=== PATIENT | male | born 1935 | race Caucasian/White ===

== ENCOUNTER 2017-11-05 06:22 | Day surgery (SDC) | payer MEDICARE ==
[2017-11-01 14:53] VITALS: BMI 25.7
[~2017-11-05 06:22] MED LIST: LACTATED RINGERS 1,000 ML IV SCH; LIDOCAINE 1% 20 ML VIAL (10MG/ML) FOR IV START INTRADERMA PRN
[2017-11-05 07:03] VITALS: TEMP 97.6
[2017-11-05 07:07] LABS: Glucose,Whole Blood 108 mg/dL (75-99)
[2017-11-05] MEDS ORDERED: LIDOCAINE 1% INJ 10MG/ML (20 ML MDV) ONE (07:59)
[2017-11-05] MEDS ORDERED: PROPOFOL 10 MG/ML 20 ML VIAL IV ONE (07:59)
[2017-11-05 09:00] LABS: Glucose,Whole Blood 109 mg/dL (75-99)
[2017-11-05 09:06] VITALS: BP 139/73; PULSE 59; RESP 18
--- NOTE | 2017-11-05 13:24 | P.PCN ---
Date of Procedure: 11/05/17 Procedure(s) Performed: Procedure: 1. Esophagogastroduodenoscopy and biopsy. 2. Colonoscopy and polypectomy. Preoperative diagnosis: Gastroesophageal reflux disease and Hemoccult-positive stools and history of polyps. Postoperative diagnosis: 1. Small sliding hiatal hernia with no obvious esophagitis or complicated reflux disease. 2. Mild gastritis and duodenitis. 3. Sigmoid diverticulosis with no evidence of acute diverticulitis or strictures. 4. Multiple polyps snared in the cecum, hepatic flexure and sigmoid. 5. Low-grade internal hemorrhoids not bleeding at the time of this exam. Preparation: HalfLytely prep. Sedation: Was provided by anesthesia. Brief clinical history: The patient is an 82-year-old male who is referred for this evaluation because of chronic reflux symptoms and finding of blood in his stools. The patient gave history of a prior exam years back and history of polyps. He also has been having some change in his bowels. No dysphagia, weight loss or other significant symptoms. Procedure: With the patient on his left lateral decubitus position and after informed consent and adequate sedation, I passed the Olympus-GIF 160 video upper endoscope through the cricopharyngeus down the esophagus. There was a small sliding hiatal hernia. GE junction was around 38 cm from the incisors and there was no obvious esophagitis or complicated reflux disease. The endoscope was then passed into the stomach which was insufflated with air and inspected in detail including the retroflex view in the cardia. There was minimal mottling and erythema in the antrum. Pyloric channel did not show any ulcers. Duodenal bulb showed some erythema and minimal friability but no ulcers or erosions. Post bulbar area and descending duodenum within normal limits. I obtained multiple biopsies from the duodenum, antrum and esophagus then the endoscope was withdrawn and I proceeded to perform the colonoscopy. Perianal area did not show any fissures or fistulas. There were no masses felt on digital rectal examination. The Olympus CFQ 160L video colonoscope was then inserted in the rectum in the usual fashion and advanced to the cecum. There were multiple diverticular orifices seen scattered in the sigmoid but I saw no evidence of acute diverticulitis or strictures. There were several polyps noted on this exam. A medium-sized polyp in the cecum was first biopsied then snared and was retrieved by suctioning it to the tip of the endoscope was withdrawn the endoscope then restarting the examination. There were 3 polyps around the hepatic flexure which were snared and retrieved by suction. There was a 2-3 cm pedunculated polyp in the distal sigmoid which I snared and retrieved by suctioning it to the tip of the endoscope was withdrawn and the endoscope and then restarting the examination. I retroflexed the endoscope in the rectum before the endoscope was withdrawn. Low-grade internal hemorrhoids were noted without evidence of acute diverticulitis or strictures. The patient tolerated the procedure well. Plan: I summarized the findings to the patient. Will await pathology results and make further recommendations. I anticipate suggesting repeat colonoscopy in 2-3 years depending on his overall health and pathology results. He will follow up with you as planned and I'll keep you updated on his progress.
== END 2017-11-05 09:45 | disposition home or self-care (01) ==
LOC: ORWHC2ENDO 06:22
DX: K20.9 Esophagitis, unspecified (principal); K29.50 Unspecified chronic gastritis without bleeding; D12.0 Benign neoplasm of cecum; D12.3 Benign neoplasm of transverse colon; D12.5 Benign neoplasm of sigmoid colon; K29.80 Duodenitis without bleeding; K44.9 Diaphragmatic hernia without obstruction or gangrene; K57.30 Diverticulosis of large intestine without perforation or abscess without bleeding; K64.8 Other hemorrhoids; Z86.010 Personal history of colon polyps; E11.9 Type 2 diabetes mellitus without complications; N40.0 Benign prostatic hyperplasia without lower urinary tract symptoms; Z79.84 Long term (current) use of oral hypoglycemic drugs; Z79.02 Long term (current) use of antithrombotics/antiplatelets; Z79.899 Other long term (current) drug therapy; Z91.09 Other allergy status, other than to drugs and biological substances
CPT/HCPCS: 88305; 45385; 43239; J2001; J2704; 45380

== ENCOUNTER → 2022-12-07 | Outpatient (CLI) | payer MEDICARE ==
--- NOTE | 2022-12-07 14:06 | MR ---
EXAMINATION TYPE: MR lumbar spine wo/w con DATE OF EXAM: 12/07/2022 1:06 PM CLINICAL INDICATION:Male, 87 years old with history of R29.898 MUSCULOSKELETAL SYSTEM; PHH, Decreased strength in left leg. COMPARISON: None TECHNIQUE: Multi planar, multi sequence imaging was performed utilizing: T1-weighted, T2-weighted, a nd turbo inversion recovery imaging of the lumbar spine. IV Contrast: 6.5 cc Gadobutrol. (None if empty) FINDINGS: Alignment: The lumbar vertebral bodies have preserved heights and alignment. Cord: The conus medullaris and the distal spinal cord appear unremarkable with regards to their signa l intensity and morphology. Bones/Discs: Multilevel disc degeneration changes with osteophyte formation, disc space narrowing, Sc hmorl's nodes, and facet joint arthropathy. No abnormal inversion recovery signal to suggest bony waldo ma. Multilevel disc desiccation is present. T12-L1: No evidence of significant spinal canal stenosis or neural foraminal stenosis. L1-L2: No evidence of significant spinal canal stenosis or neural foraminal stenosis. L2-L3: Disc bulge with possible disc protrusion in the left foraminal region. No significant spinal c anal stenosis Additionally there is facet joint arthropathy with moderate to severe left and mild to moderate right neural foraminal stenosis. L3-L4: Disc bulge and facet joint arthropathy result in moderate spinal canal and moderate to severe bilateral neural foraminal stenosis. L4-L5: Disc bulge and facet joint arthropathy result in moderate spinal canal and moderate to severe right and moderate left neural foraminal stenosis. L5-S1: The disc is rounded posterior morphology without significant spinal canal stenosis. Facet join t arthropathy with severe bilateral neural foraminal stenosis. No significant spinal canal or neural foraminal stenosis in the remainder of the visualized levels. Other findings: None. IMPRESSION: 1. No definitive evidence of significant spinal canal stenosis. 2. Left foraminal L2-L3 disc bulge with superimposed protrusion suggested. No significant spinal natividad l or neural foraminal stenosis. 3. Moderate to severe disc degeneration with associated osteoarthritic changes with varying degrees o f neural foramina stenosis worse at L5-S1 but also demonstrating additional levels of neural foramina l stenosis
== END | disposition home or self-care (01) ==
LOC: RADMRIMAIN 11:56
PROVIDERS: ATTEND Internal Medicine
DX: M51.37 Other intervertebral disc degeneration, lumbosacral region (principal); M47.816 Spondylosis without myelopathy or radiculopathy, lumbar region; M99.73 Connective tissue and disc stenosis of intervertebral foramina of lumbar region; R29.898 Other symptoms and signs involving the musculoskeletal system
CPT/HCPCS: 72158; A9585

== ENCOUNTER 2023-02-25 18:18 | Observation (INO) | payer MEDICARE ==
--- NOTE | 2023-02-25 19:36 | ED ---
Extremity Problem HPI - General Source: patient, family, RN notes reviewed Mode of arrival: EMS Limitations: no limitations <Mirlande Mcqueen - Last Filed: 02/25/23 19:37> <Layo Samayoa - Last Filed: 02/26/23 09:42> - General Chief complaint: Extremity Problem,Nontraumatic Stated complaint: back pain Time Seen by Provider: 02/25/23 19:33 - History of Present Illness Initial comments: Patient is an 88 yesr old male presenting to the ER with a chief complaint og right calf pain. Patient states he was trying to get out of his recliner today and was unable to due to the pain. Patient was diagnosed with lumbar stenosis. Denies any bowel/bladder incontience, saddle paresthesias, seizures, history of IV drug use. (Mirlande Mcqueen) - Related Data Home Medications Medication Instructions Recorded Confirmed Clopidogrel [Plavix] 75 mg PO DAILY 05/07/15 02/26/23 Folic Acid 1 mg PO DAILY 05/07/15 02/26/23 Tamsulosin [Flomax] 0.4 mg PO DAILY 05/07/15 02/26/23 Atorvastatin [Lipitor] 40 mg PO DAILY 02/26/23 02/26/23 Bimatoprost [Lumigan 0.01% Ophth 1 drop BOTH EYES HS 02/26/23 02/26/23 Soln] Finasteride [Proscar] 5 mg PO DAILY 02/26/23 02/26/23 Olopatadine HCl [Patanol 0.1%] 1 drop BOTH EYES DAILY 02/26/23 02/26/23 glipiZIDE [glipiZIDE ER] 2.5 mg PO DAILY 02/26/23 02/26/23 sitaGLIPtin [Januvia] 100 mg PO DAILY 02/26/23 02/26/23 Allergies Allergy/AdvReac Type Severity Reaction Status Date / Time No Known Allergies Allergy Verified 02/26/23 07:07 Review of Systems ROS Other: All systems not noted in ROS Statement are negative. <Mirlande Mcqueen - Last Filed: 02/25/23 19:37> ROS Other: All systems not noted in ROS Statement are negative. <Layo Samayoa - Last Filed: 02/26/23 09:42> ROS Statement: Those systems with pertinent positive or pertinent negative responses have been documented in the HPI. Past Medical History Past Medical History: Diabetes Mellitus, Eye Disorder, Osteoarthritis (OA) Additional Past Medical History / Comment(s): PATIENT UNSURE OF WHY HE TAKES PLAVIX, CALLED DR FORBES'S OFFICE, AND WAS TOLD "HIS CARDIAC DR PRESCRIBES IT"; PATIENT DENIES ANY HEART PROBLEMS, STROKE, OR BLOOD CLOT HX. History of Any Multi-Drug Resistant Organisms: None Reported Additional Past Surgical History / Comment(s): COLONOSCOPY, cataract surgery. Past Anesthesia/Blood Transfusion Reactions: No Reported Reaction Past Psychological History: No Psychological Hx Reported Past Alcohol Use History: Rare Past Drug Use History: None Reported - Past Family History Father Family Medical History: Cancer Mother Family Medical History: Cancer <Mirlande Mcqueen - Last Filed: 02/25/23 19:37> General Exam Limitations: no limitations <Mirlande Mcqueen - Last Filed: 02/25/23 19:37> - General Exam Comments Initial Comments: Visual Physical Exam Vital signs reviewed General: Well-appearing, nontoxic, no acute distress. Head: Normocephalic, atraumatic Eyes: PERRLA, EOMI ENT: Airway patent Chest: Nonlabored breathing Skin: No visual rash, normal skin tone Neuro: Alert and oriented 3 Musculoskeletal: No gross abnormalities (Mirlande Mcqueen) Course Vital Signs 02/25/23 02/26/23 02/26/23 18:20 01:58 03:54 Temperature 98.5 F Pulse Rate 96 85 80 Respiratory 18 18 Rate Blood Pressure 148/75 149/93 146/74 O2 Sat by Pulse 95 98 97 Oximetry 02/26/23 02/26/23 02/26/23 04:00 05:00 06:00 Temperature Pulse Rate 70 69 68 Respiratory 26 H 16 20 Rate Blood Pressure 146/74 152/106 154/84 O2 Sat by Pulse 96 96 95 Oximetry Medical Decision Making <Mirlande Mcqueen - Last Filed: 02/25/23 19:37> - Lab Data Result diagrams: 02/26/23 03:55 02/26/23 04:48 <Layo Samayoa - Last Filed: 02/26/23 09:42> - Medical Decision Making I performed the quick note portion of the exam. Electronically signed by Mirlande Mcqueen PA-C (Mirlande Mcqueen) Was patient admitted / discharged? Hospital course, mention meds given and route, prescriptions, significant lab abnormalities, going to OR and other pertinent info. @ -Signed out to me by Dr. Snyder at 7 AM. Patient's ultrasound of the lower extremities showed no DVT. Patient's CT of the back showed degenerative disease. Patient was still unable to and post-spoke with Dr. Coronado he agreed to admit the patient admitted the patient wrote admitting orders and consult to Dr. Gomez Undiagnosed new problem with uncertain prognosis? @ -No Drug Therapy requiring intensive monitoring for toxicity (Heparin, Nitro, Insulin, Cardizem)? @ -No Were any procedures done? @ -No Diagnosis/symptom? @ -Spinal stenosis Acute, or Chronic, or Acute on Chronic? @ -Acute Uncomplicated (without systemic symptoms) or Complicated (systemic symptoms)? @ -Complicated Side effects of treatment? @ -No Exacerbation, Progression, or Severe Exacerbation? @ -No Poses a threat to life or bodily function? How? (Chest pain, USA, ME, pneumonia, PE, COPD, DKA, ARF, appy, cholecystitis, CVA, Diverticulitis, Homicidal, Suicidal, threat to staff... and all critical care pts) @ -No Diagnosis/symptom? @ -Inability to ambulate Acute, or Chronic, or Acute on Chronic? @ -Acute Uncomplicated (without systemic symptoms) or Complicated (systemic symptoms)? @ -default Side effects of treatment? @ -none Exacerbation, Progression, or Severe Exacerbation] @ -no Poses a threat to life or bodily function? @ -no (Layo Samayoa) - Lab Data Lab Results 02/25/23 02/26/23 02/26/23 Range/Units 22:33 03:55 03:55 WBC 11.2 H (3.8-10.6) k/uL RBC 4.45 (4.30-5.90) m/uL Hgb 14.7 (13.0-17.5) gm/dL Hct 42.4 (39.0-53.0) % MCV 95.4 (80.0-100.0) fL MCH 33.1 (25.0-35.0) pg MCHC 34.7 (31.0-37.0) g/dL RDW 12.6 (11.5-15.5) % Plt Count 147 L (150-450) k/uL MPV 9.2 Neutrophils % 72 % Lymphocytes % 18 % Monocytes % 7 % Eosinophils % 1 % Basophils % 0 % Neutrophils # 8.1 H (1.3-7.7) k/uL Lymphocytes # 2.0 (1.0-4.8) k/uL Monocytes # 0.8 (0-1.0) k/uL Eosinophils # 0.1 (0-0.7) k/uL Basophils # 0.0 (0-0.2) k/uL D-Dimer (<0.60) mg/L FEU Sodium (137-145) mmol/L Potassium (3.5-5.1) mmol/L Chloride (98-107) mmol/L Carbon Dioxide (22-30) mmol/L Anion Gap mmol/L BUN (9-20) mg/dL Creatinine (0.66-1.25) mg/dL Est GFR (CKD-EPI)AfAm (>60 ml/min/1.73 sqM) Est GFR (CKD-EPI)NonAf (>60 ml/min/1.73 sqM) Glucose (74-99) mg/dL POC Glucose (mg/dL) 194 H (70-110) mg/dL POC Glu Hand Alterations Tailor ID [place] Plasma Lactic Acid Damian 1.7 (0.7-2.0) mmol/L Calcium (8.4-10.2) mg/dL Magnesium (1.6-2.3) mg/dL Total Bilirubin (0.2-1.3) mg/dL AST (17-59) U/L ALT (4-49) U/L Alkaline Phosphatase (38-126) U/L C-Reactive Protein (<1.0) mg/dL Total Protein (6.3-8.2) g/dL Albumin (3.5-5.0) g/dL 02/26/23 02/26/23 Range/Units 04:48 04:48 WBC (3.8-10.6) k/uL RBC (4.30-5.90) m/uL Hgb (13.0-17.5) gm/dL Hct (39.0-53.0) % MCV (80.0-100.0) fL MCH (25.0-35.0) pg MCHC (31.0-37.0) g/dL RDW (11.5-15.5) % Plt Count (150-450) k/uL MPV Neutrophils % % Lymphocytes % % Monocytes % % Eosinophils % % Basophils % % Neutrophils # (1.3-7.7) k/uL Lymphocytes # (1.0-4.8) k/uL Monocytes # (0-1.0) k/uL Eosinophils # (0-0.7) k/uL Basophils # (0-0.2) k/uL D-Dimer 1.44 H (<0.60) mg/L FEU Sodium 139 (137-145) mmol/L Potassium 4.3 (3.5-5.1) mmol/L Chloride 110 H (98-107) mmol/L Carbon Dioxide 20 L (22-30) mmol/L Anion Gap 9 mmol/L BUN 15 (9-20) mg/dL Creatinine 0.99 (0.66-1.25) mg/dL Est GFR (CKD-EPI)AfAm 79 (>60 ml/min/1.73 sqM) Est GFR (CKD-EPI)NonAf 68 (>60 ml/min/1.73 sqM) Glucose 139 H (74-99) mg/dL POC Glucose (mg/dL) (70-110) mg/dL POC Glu Hand Alterations Tailor ID Plasma Lactic Acid Damian (0.7-2.0) mmol/L Calcium 8.9 (8.4-10.2) mg/dL Magnesium 2.1 (1.6-2.3) mg/dL Total Bilirubin 1.4 H (0.2-1.3) mg/dL AST 23 (17-59) U/L ALT 15 (4-49) U/L Alkaline Phosphatase 145 H (38-126) U/L C-Reactive Protein <0.5 (<1.0) mg/dL Total Protein 6.5 (6.3-8.2) g/dL Albumin 3.5 (3.5-5.0) g/dL Disposition <Mirlande Mcqueen - Last Filed: 02/25/23 19:37> Time of Disposition: 09:42 <Layo Samayoa - Last Filed: 02/26/23 09:42> Clinical Impression: Spinal stenosis, Inability to walk Disposition: ADMITTED IP TO THIS HOSP Referrals: None,Stated [REFERRING] - 1-2 days
--- NOTE | 2023-02-25 21:08 | XR ---
EXAMINATION TYPE: XR knee complete RT DATE OF EXAM: 02/25/2023 COMPARISON: None HISTORY: Pain TECHNIQUE: 3 view right knee FINDINGS: Joint spaces are preserved. No acute fracture or dislocation is evident. No joint effusion is evident. Follow up exams can be performed 7-10 days. IMPRESSION: 1. No acute osseous abnormality right knee
[2023-02-25 22:39] LABS: Glucose,Whole Blood 194 mg/dL (70-110)
[2023-02-26 04:32] LABS: Basophils % (A) 0 %; Eosinophils # (A) 0.1 k/uL (0-0.7); Eosinophils % (A) 1 %; HCT 42.4 % (39.0-53.0); HGB 14.7 gm/dL (13.0-17.5); Lymphocytes % (A) 18 %; MCH 33.1 pg (25.0-35.0); MCHC 34.7 g/dL (31.0-37.0); MCV 95.4 fL (80.0-100.0); Mean Platelet Volume 9.2; Monocytes # (A) 0.8 k/uL (0-1.0); Monocytes % (A) 7 %; Neutrophils # (A) 8.1 k/uL (1.3-7.7); Neutrophils % (A) 72 %; Platelet Count 147 k/uL (150-450); RBC 4.45 m/uL (4.30-5.90); RDW 12.6 % (11.5-15.5); WBC 11.2 k/uL (3.8-10.6)
[2023-02-26 05:24] LABS: ALT 15 U/L (4-49); AST 23 U/L (17-59); African American GFR (CKD) 79 (>60 ml/min/1.73 sqM); Albumin 3.5 g/dL (3.5-5.0); Alkaline Phosphatase 145 U/L (38-126); Anion Gap 9 mmol/L; Blood Urea Nitrogen 15 mg/dL (9-20); C Reactive Protein <0.5 mg/dL (<1.0); Calcium 8.9 mg/dL (8.4-10.2); Carbon Dioxide 20 mmol/L (22-30); Chloride 110 mmol/L (98-107); Glucose 139 mg/dL (74-99); Magnesium 2.1 mg/dL (1.6-2.3); Non-African American GFR(CKD) 68 (>60 ml/min/1.73 sqM); Potassium 4.3 mmol/L (3.5-5.1); Sodium 139 mmol/L (137-145); Total Bilirubin 1.4 mg/dL (0.2-1.3); Total Protein 6.5 g/dL (6.3-8.2)
--- NOTE | 2023-02-26 07:55 | CT ---
EXAMINATION TYPE: CT lumbar spine wo con CT DLP: 637.4 mGycm, Automated exposure control for dose reduction was used. DATE OF EXAM: 02/26/2023 7:12 AM COMPARISON: None. CLINICAL INDICATION:Male, 88 years old with history of L leg weakness; PHH, Left leg weakness TECHNIQUE: Multiple axial images were obtained from the midportion of T11 through the sacroiliac aria nts. Soft tissue and bone windows in coronal and sagittal planes were obtained and reviewed. 3-D ref ormats of the bones were created on a separate workstation and submitted for review. Contrast used: mL of , (None, if empty). Oral contrast used: (None, if empty). FINDINGS: Alignment: There are 5 lumbar type vertebral bodies within normal alignment. Bone: No evidence of fracture is identified. Multilevel degeneration changes throughout the spine wi th osteophyte formation vacuum disc phenomenon, disc space narrowing, osteophyte formation and Schmor l's nodes. Bone island in the L5 vertebrae. Pseudoarthrosis of the spinous processes. Discs: T12-L1: No spinal canal or neural foraminal stenosis is identified. L1-L2: Facet joint arthropathy and disc bulging result with mild spinal canal stenosis and mild bilat eral neural foraminal stenosis. L2-L3: Facet joint arthropathy and disc bulging result with moderate to severe spinal canal stenosis and severe left and mild to moderate neural foraminal stenosis. L3-L4: Facet joint arthropathy and disc bulging result with moderate to severe spinal canal stenosis and moderate to severe neural foraminal stenosis. L4-L5: Facet joint arthropathy and disc bulging result with moderate to severe spinal canal stenosis and severe right and moderate left neural foraminal stenosis. L5-S1: Facet joint arthropathy and disc bulging result with mild spinal canal stenosis and moderate t o severe right and severe left neural foraminal stenosis. Other: Clonic diverticula. Atherosclerosis of the arterial vasculature. IMPRESSION: 1. No evidence for spinal fracture. 2. Moderate to severe degeneration changes with varying degrees neural foraminal stenosis as describe d above. No foraminal stenosis worse at L2-L3 and L5-S1 on the left with severe neural foraminal sten osis. 3. Findings suggestive of Baastrup's disease.
--- NOTE | 2023-02-26 08:53 | US ---
EXAMINATION TYPE: US venous doppler duplex LE RT DATE OF EXAM: 02/26/2023 8:43 AM COMPARISON: NONE CLINICAL INDICATION: Male, 88 years old with history of R leg pain; right lower leg pain, pt a bit co nfused, says he is on thinners but doesn't know why SIDE PERFORMED: Right TECHNIQUE: The lower extremity deep venous system is examined utilizing real time linear array sonog xin with graded compression, doppler sonography and color-flow sonography. VESSELS IMAGED: Common Femoral Vein Deep Femoral Vein Greater Saphenous Vein * Femoral Vein Popliteal Vein Small Saphenous Vein * Proximal Calf Veins (* superficial vessels) Right Leg: Negative for DVT IMPRESSION: Grayscale, color doppler, spectral doppler imaging performed of the deep veins of the lo wer extremities. There is normal flow, compressibility, vascular waveforms.
[2023-02-26] MEDS ORDERED: SODIUM CHLORIDE 0.9% 1,000 ML IV ONE (09:42)
--- NOTE | 2023-02-26 11:12 | P.CNOR ---
History of Present Illness - [facility] Consult date: 02/26/23 Requesting physician: Layo Samayoa Consult reason: other (Difficulty ambulation due to right lower extremity leg pain) History of present illness: Patient is a very pleasant 88-year-old male who is seen and examined in the emergency department room #03 for further evaluation of his lumbar spine. Patient presented to the emergency department as he has had significant diffi culty with mobilization and ambulation on his right lower extremity due to pain. He states when he stands on his right lower extremity has pain that radiates down the right lower extremity into the posterior lateral calf. The calf pain is most significant. He denies any specific lower extremity weakness or radiculopathy on the left. He denies specific right lower extremity weakness. He states he's had occulta with the mobility due to pain and would not be in the emergency department if it wasn't for this pain. He denies any specific low back pain. He states his pain is been ongoing over the past few months. He did have ultrasound Doppler performed of the right lower extremity with no evidence of DVT. He has had lumbar CT imaging during his presentation to the emergency department. He also had MRI imaging lumbar spine in November 2022. Given his advanced age, he does not wish to discuss the possibility of surgical intervention. He would continue with conservative treatment options including consultation with pain management. He has been admitted to medicine who is seeing him for his other medical diagnoses including diabetes mellitus. Past Medical History Past Medical History: Diabetes Mellitus, Eye Disorder, Osteoarthritis (OA) Additional Past Medical History / Comment(s): PATIENT UNSURE OF WHY HE TAKES PLAVIX, CALLED DR FORBES'S OFFICE, AND WAS TOLD "HIS CARDIAC DR PRESCRIBES IT"; PATIENT DENIES ANY HEART PROBLEMS, STROKE, OR BLOOD CLOT HX. History of Any Multi-Drug Resistant Organisms: None Reported Additional Past Surgical History / Comment(s): COLONOSCOPY, cataract surgery. Past Anesthesia/Blood Transfusion Reactions: No Reported Reaction Past Psychological History: No Psychological Hx Reported Past Alcohol Use History: Rare Past Drug Use History: None Reported - Past Family History Father Family Medical History: Cancer Mother Family Medical History: Cancer Medications and Allergies Home Medications Medication Instructions Recorded Confirmed Type Clopidogrel [Plavix] 75 mg PO DAILY 05/07/15 02/26/23 History Folic Acid 1 mg PO DAILY 05/07/15 02/26/23 History Tamsulosin [Flomax] 0.4 mg PO DAILY 05/07/15 02/26/23 History Atorvastatin [Lipitor] 40 mg PO DAILY 02/26/23 02/26/23 History Bimatoprost [Lumigan 0.01% Ophth 1 drop BOTH EYES HS 02/26/23 02/26/23 History Soln] Finasteride [Proscar] 5 mg PO DAILY 02/26/23 02/26/23 History HYDROcodone/APAP 5-325MG [[place] 1 tab PO Q4HR PRN 3 Days #18 tab 02/26/23 Rx 5-325] Olopatadine HCl [Patanol 0.1%] 1 drop BOTH EYES DAILY 02/26/23 02/26/23 History glipiZIDE [glipiZIDE ER] 2.5 mg PO DAILY 02/26/23 02/26/23 History sitaGLIPtin [Januvia] 100 mg PO DAILY 02/26/23 02/26/23 History Allergies Allergy/AdvReac Type Severity Reaction Status Date / Time No Known Allergies Allergy Verified 02/26/23 07:07 Physical Examination Osteopathic Statement: *. No significant issues noted on an osteopathic structural exam other than those noted in the History and Physical/Consult. Physical exam: Patient is awake, alert, and oriented 3 Vital signs stable Good chest excursion with deep inspiration and expiration Examination of lumbar spine reveals skin is intact with no abrasions, lacerations, or bruises; no erythema, purulence or signs of infection No pain with palpation over the lumbar spine Dorsiflexion and plantarflexion longus positive sustained bilaterally Difficulty with extensor hallucis longus on the left Patient is able to perform hip flexion bilaterally independently without significant difficulty No lower extremity hyperreflexia bilaterally Straight leg test negative bilateral lower extremities Negative Lasegue's test bilaterally No signs or symptoms of DVT; no calf pain No pain with internal and external rotation of the hips bilaterally Neurovascularly intact Results Pertinent studies: CT of the lumbar spine taken on 02/26/2023: L2-3 left paracentral disc bulge and facet joint arthropathy resulting in with severe left and mild to moderate neural foraminal stenosis; L3-4 facet joint arthropathy and disc bulging resulting in moderate to severe central canal stenosis with moderate severe neural foraminal stenosis; L4-5 facet joint arthropathy and disc bulging resulting in moderate to severe central canal stenosis with moderate to severe neural foraminal stenosis; L5-S1 facet joint arthropathy and disc bulging resulting in mild central canal stenosis with moderate to severe right and severe left neural foraminal stenosis; no evidence of compression fracture deformity; L2-3 and L3-4 degenerative disc disease; L4-5 and L5-S1 severe degenerative; imaging appears stable without significant change as compared to previous lumbar MRI imaging taken on 12/07/2022 Venous ultrasound Doppler taken on 02/26/2023: Negative for DVT MRI of lumbar spine taken on 12/07/2022: L2-3 left paracentral disc bulge and facet joint arthropathy resulting in with severe left and mild to moderate neural foraminal stenosis; L3-4 facet joint arthropathy and disc bulging result ing in moderate to severe central canal stenosis with moderate severe neural foraminal stenosis; L4-5 facet joint arthropathy and disc bulging resulting in moderate to severe central canal stenosis with moderate to severe neural foraminal stenosis; L5-S1 facet joint arthropathy and disc bulging resulting in mild central canal stenosis with moderate to severe right and severe left neural foraminal stenosis; no evidence of compression fracture deformity; L2-3 and L3- 4 degenerative disc disease; L4-5 and L5-S1 severe degenerative - Labs Labs: Abnormal Lab Results - Last 24 Hours (Table) 02/25/23 02/26/23 02/26/23 Range/Units 22:33 03:55 04:48 WBC 11.2 H (3.8-10.6) k/uL Plt Count 147 L (150-450) k/uL Neutrophils # 8.1 H (1.3-7.7) k/uL D-Dimer (<0.60) mg/L FEU Chloride 110 H (98-107) mmol/L Carbon Dioxide 20 L (22-30) mmol/L Glucose 139 H (74-99) mg/dL POC Glucose (mg/dL) 194 H (70-110) mg/dL Total Bilirubin 1.4 H (0.2-1.3) mg/dL Alkaline Phosphatase 145 H (38-126) U/L 02/26/23 Range/Units 04:48 WBC (3.8-10.6) k/uL Plt Count (150-450) k/uL Neutrophils # (1.3-7.7) k/uL D-Dimer 1.44 H (<0.60) mg/L FEU Chloride (98-107) mmol/L Carbon Dioxide (22-30) mmol/L Glucose (74-99) mg/dL POC Glucose (mg/dL) (70-110) mg/dL Total Bilirubin (0.2-1.3) mg/dL Alkaline Phosphatase (38-126) U/L H & H 02/26/23 Range/Units 03:55 Hgb 14.7 (13.0-17.5) gm/dL Hct 42.4 (39.0-53.0) % Result Diagrams: 02/26/23 03:55 02/26/23 04:48 Assessment and Plan Assessment: Assessment: Right lower extremity radiculopathy Difficulty ambulation of the right lower extremity due to radicular pain when standing Lumbar and lumbosacral facet joint arthropathy Multilevel lumbar foraminal stenosis L2-3 and L3-4 moderate degenerative disc disease L4-5 and L5-S1 severe degenerative disc disease L3-4 and L4-5 moderate severe central canal stenosis Diabetes mellitus (1) Degenerative lumbar spinal stenosis Current Visit: Yes Status: Acute Code(s): M48.061 - SPINAL STENOSIS, LUMBAR REGION WITHOUT NEUROGENIC CAROLIN SNOMED Code(s): 129668810 (2) Radiculopathy of leg Current Visit: Yes Status: Acute Code(s): M54.10 - RADICULOPATHY, SITE UNSPECIFIED SNOMED Code(s): 61103048 (3) Lumbar facet arthropathy Current Visit: Yes Status: Acute Code(s): M47.816 - SPONDYLOSIS W/O MYELOPATHY OR RADICULOPATHY, LUMBAR REGION SNOMED Code(s): 890232908 (4) Lumbar degenerative disc disease Current Visit: Yes Status: Acute Code(s): M51.36 - OTHER INTERVERTEBRAL DISC DEGENERATION, LUMBAR REGION SNOMED Code(s): 33268831 (5) DJD (degenerative joint disease), lumbosacral Current Visit: Yes Status: Acute Code(s): M47.817 - SPONDYLS W/O MYELOPATHY OR RADICULOPATHY, LUMBOSACR REGION SNOMED Code(s): 422863350 (6) Foraminal stenosis of lumbar region Current Visit: Yes Status: Acute Code(s): M48.061 - SPINAL STENOSIS, LUMBAR REGION WITHOUT NEUROGENIC CAROLIN SNOMED Code(s): 259542002 (7) Diabetes mellitus Current Visit: Yes Status: Acute Code(s): E11.9 - TYPE 2 DIABETES MELLITUS WITHOUT COMPLICATIONS SNOMED Code(s): 16846049 (8) Inability to walk Current Visit: Yes Status: Acute Code(s): R26.2 - DIFFICULTY IN WALKING, NOT ELSEWHERE CLASSIFIED SNOMED Code(s): 377181670 Plan: Plan: 1. Over the past couple months the patient has been having difficulty with ambulation on his right lower extremity as standing on his right lower extremity causes radicular pain radiating down his leg most significant at his right posterior lateral calf. He is not currently experiencing any significant lower extremity weakness on the right. He does have reduced range of motion with extensor hallucis longus on the left on physical examination. He did not know he had reduced range of motion with his great toe on the left lower extremity but this does not bother him. He does not have any left lower extremity radiculopathy. He denies any current low back pain. He's had difficulty with ambulation and management of his right lower extremity leg pain. He is on anticoagulation. DOPPLER WAS NEGATIVE FOR DVT. He does not have pain with palpation over his right calf. He does have multilevel degenerative change at his lumbar spine most significant at L3-4 and L4-5. He could be acute for surgical intervention if he were to fail conservative treatment options. Given his advanced age, patient would like to refrain from all surgical intervention is lumbar spine. He would be willing to work to further conservative treatment. Consultation has been placed with pain management. Currently, patient is clear for discharge from an orthopedic spine standpoint. Patient may follow-up with Juan Joshua PA-C or Dr. David Gomez at [facility] in 4-6 weeks following discharge after undergoing further workup with pain management. the case and imaging has been reviewed. I agree with the dictation above. He will continue conservative care. He has no interest in pursuing any surgical options. From a orthopedic spine standpoint it is okay for him to continue with interventional pain management and follow-up on an as-needed basis Time with Patient: Greater than 30 (Including obtaining history, physical examination, reviewing of imaging, and dictation.)
--- NOTE | 2023-02-26 12:04 | P.PAINPG ---
Objective - Vital Signs Vital signs: Vital Signs Temp 97.7 F 02/26/23 10:42 Pulse 87 02/26/23 10:42 Resp 18 02/26/23 10:42 BP 165/87 02/26/23 10:42 Pulse Ox 100 02/26/23 10:42 FiO2 Intake & Output 02/25/23 02/26/23 02/26/23 18:59 06:59 18:59 Weight 68.039 kg 68.039 kg - Labs CBC & Chem 7: 02/26/23 03:55 02/26/23 04:48 Labs: Abnormal Lab Results - Last 24 Hours (Table) 02/25/23 02/26/23 02/26/23 Range/Units 22:33 03:55 04:48 WBC 11.2 H (3.8-10.6) k/uL Plt Count 147 L (150-450) k/uL Neutrophils # 8.1 H (1.3-7.7) k/uL D-Dimer (<0.60) mg/L FEU Chloride 110 H (98-107) mmol/L Carbon Dioxide 20 L (22-30) mmol/L Glucose 139 H (74-99) mg/dL POC Glucose (mg/dL) 194 H (70-110) mg/dL Total Bilirubin 1.4 H (0.2-1.3) mg/dL Alkaline Phosphatase 145 H (38-126) U/L 02/26/23 Range/Units 04:48 WBC (3.8-10.6) k/uL Plt Count (150-450) k/uL Neutrophils # (1.3-7.7) k/uL D-Dimer 1.44 H (<0.60) mg/L FEU Chloride (98-107) mmol/L Carbon Dioxide (22-30) mmol/L Glucose (74-99) mg/dL POC Glucose (mg/dL) (70-110) mg/dL Total Bilirubin (0.2-1.3) mg/dL Alkaline Phosphatase (38-126) U/L PQRS Measure Charge Sheet Comment: HISTORY OF PRESENT ILLNESS: An 88 yr old inpatient male as a referral from Dr Gomez presents today w severe and chronic LBP secondary to severe spinal stenosis, DDD, spondylosis and facet arthropathy without myelopathy for evaluation. Pt states pain level is provoked at 7/10 in intensity, constant, localized throughout the lumbar spine, predominantly axial, sore in character w occasional shooting pain towards the BLEs. Pain is provoked by standing from a sitting position. In fact, pt could not stand up on his own today which prompted his admission. He normally sees Dr Coronado whom prescribes him meds for pain, diabetes and a blood thinner. Pain is alleviated by medications, repositioning and rest. PMH: OA, NIDDM II, Hx of clots, Cataracts PSH: Colonscopy, Cataract Extraction SH: No tobacco use, Rare ETOH use, No illicit drug use FH: Fa- CA. Mo- CA. All: See list Meds: See list REVIEW OF ORGAN SYSTEMS: CONSTITUTIONAL: No fevers or chills. No recent weight loss. NEUROLOGICAL: + numbness and tingling along the distal extremities. No seizure disorders or headaches. MUSCULOSKELETAL: + pain PSYCHIATRIC: Denies current depression or suicidal thoughts. Physical Examinations : Constitutional : Cooperative , not in acute distress . Neurologic : Cranial nerve II to XII intact. No focal neurological deficits. Psychiatric : alert & oriented x 3. Matching mood & appropriate affect. Judgment & insight intact. Musculoskeletal : Cervical Spine Motor strength in the deltoid and biceps: Normal right side. Normal Left side Motor strength biceps and the wrist extensors: Normal right side . Normal left side Motor strength in the triceps muscle: Normal right side. Normal left side Deep tendon reflexes: Normal at the biceps. Normal at Brachioradialis. Normal at triceps Vertebral body tenderness to deep palpation over Cervical facet loading test: positive bilaterally Spurling test: positive bilaterally Neck distraction test: positive bilaterally Natasha sign: positive bilaterally Lumbar spine Motor strength lower extremities ,thigh and legs 5/5 Right side , 5/5 Left side Deep tendon reflexes : Normal Knee Jerk. Normal Ankle Jerk Vertebral body tenderness over Mead Test positive Lumbar facet Loading Test: positive Right / positive Left Range of motion of the lumbar spine Flexion 30 degrees, extension 10 degrees Straight Leg Raise test: Left/ Right positive at degrees Dania test: positive right / positive left. Severe tenderness over the Sacroiliac joint on the Right / Left sides Gaenslen test: positive bilaterally Seated flexion test: positive bilaterally. Sacral spine : Severe tenderness over the Sacroiliac joint: right side / left side Range of motion: Flexion of the lumbar spine <60 degrees Range of motion: Extension of the lumbar spine <20 degrees Gaenslen's Test positive Dania test: positive right side / left side Thigh Thrust Test Sacral Thrust Test Imaging: CT lumbar spine from 02/26/23 reviewed Assessment/ Plan : Lumbar stenosis, lumbar DDD Recommendation of medication management. [place] 5/325mg #18 NR. Pt would benefit from an BENIGNO of the L1-L2 as pt has extensive stenosis from L2-L5 but will have to stop Plavix for 7 days prior to procedure. Can follow up on an outpatient basis. All questions answered. I have spent greater than 30 minutes on patient care today. Dr Lundy was available by phone for the evaluation of this patient. The time was used to review the medical records including relevant urine studies and Prescription history (MAPs), review of the available imaging, evaluation and examination of the patient, coordination of care with the medical staff and if applicable referring physicians, as well as creation of the medical record PQRS Narrative: Smoking Status Never smoker Blood Pressure 165/87 Pain Intensity 0 Scale Used Numeric (1 - 10) Home Medications: Ambulatory Orders Clopidogrel [Plavix] 75 mg PO DAILY 05/07/15 Folic Acid 1 mg PO DAILY 05/07/15 Tamsulosin [Flomax] 0.4 mg PO DAILY 05/07/15 Atorvastatin [Lipitor] 40 mg PO DAILY 02/26/23 Bimatoprost [Lumigan 0.01% Oph Soln] 1 drop BOTH EYES HS 02/26/23 Finasteride [Proscar] 5 mg PO DAILY 02/26/23 Olopatadine HCl [Patanol 0.1%] 1 drop BOTH EYES DAILY 02/26/23 glipiZIDE [glipiZIDE ER] 2.5 mg PO DAILY 02/26/23 sitaGLIPtin [Januvia] 100 mg PO DAILY 02/26/23 Controlled Substance Measures - Controlled Substance Measures Is patient prescribed a controlled substance at discharge?: Yes When asked, does pt state using other controlled substances?: No If prescribed controlled substance>3 days was MAPS reviewed?: Prescribed <3 Days
[2023-02-26] MEDS: SODIUM CHLORIDE 0.9% 1,000 ML IV SCH (17:25)
[2023-02-26 21:29] LABS: Glucose,Whole Blood 106 mg/dL (70-110)
[2023-02-27] MEDS: SODIUM CHLORIDE 0.9% 1,000 ML IV SCH ×3 (04:56→20:11)
[2023-02-27 05:54] LABS: Glucose,Whole Blood 118 mg/dL (70-110)
[2023-02-27] MEDS: ATORVASTATIN 40 MG TAB PO SCH (09:36)
[2023-02-27] MEDS: TAMSULOSIN 0.4 MG CAP.ER.24H PO SCH (09:36)
[2023-02-27] MEDS: FINASTERIDE 5 MG TAB PO SCH (09:36)
[2023-02-27] MEDS: CLOPIDOGREL 75 MG TAB PO SCH (09:36)
[2023-02-27] MEDS: LINAGLIPTIN 5 MG TABLET PO SCH (09:36)
[2023-02-27] MEDS: FOLIC ACID 1 MG TAB PO SCH (09:37)
[2023-02-27 11:38] LABS: Glucose,Whole Blood 142 mg/dL (70-110)
[2023-02-27] MEDS: MECLIZINE 12.5 MG TAB PO SCH ×2 (13:12→20:09)
[2023-02-27 16:43] LABS: Glucose,Whole Blood 79 mg/dL (70-110)
[2023-02-27 19:54] LABS: Glucose,Whole Blood 115 mg/dL (70-110)
[2023-02-27 21:45] VITALS: RESP 16
[2023-02-28 05:53] LABS: Glucose,Whole Blood 98 mg/dL (70-110)
[2023-02-28] MEDS: CLOPIDOGREL 75 MG TAB PO SCH (08:30)
[2023-02-28] MEDS: TAMSULOSIN 0.4 MG CAP.ER.24H PO SCH (08:30)
[2023-02-28] MEDS: LINAGLIPTIN 5 MG TABLET PO SCH (08:30)
[2023-02-28] MEDS: ATORVASTATIN 40 MG TAB PO SCH (08:30)
[2023-02-28] MEDS: FINASTERIDE 5 MG TAB PO SCH (08:30)
[2023-02-28] MEDS: FOLIC ACID 1 MG TAB PO SCH (08:30)
[2023-02-28] MEDS: MECLIZINE 12.5 MG TAB PO SCH (08:30)
[2023-02-28 08:48] VITALS: PULSE 66; TEMP 97.8
--- NOTE | 2023-02-28 09:06 | P.HPIM ---
History of Present Illness H&P Date: 02/26/23 HISTORY OF PRESENT ILLNESS This is an 88 year old male with past medical history of hyperlipidemia, benign prostatic hypertrophy, diabetes mellitus type 2. patient presented to the emergency center due to lumbar pain, unable to get himself out of the chair and difficulty with ambulation on the right lower extremity due to severe pain. The pain radiates down the right lower extremity to that posterior lateral calf. He has not been able to ambulate due to the pain. He has had pain over the past several months but this is significantly worse. Patient underwent an ultrasound Doppler of the right lower extremity that was negative for DVT. CAT scan of the lumbar spine was done which revealedno evidence for spinal fracture. Moderate to severe degenerative changes with varying degrees of n eural foraminal stenosis. Foraminal stenosis worse at L2-L3 and L5-S1 on the left with severe neural foraminal stenosis. Right knee x-ray revealed no acute osseous abnormality. Patient had a previous MRI done of his lumbar spine in November 2022 which revealedno definitive evidence of significant spinal canal stenosis. Left foraminal L2-L3 disc bulge with superimposed protrusion she adjusted. No significant spinal canal or neural foraminal stenosis. Moderate to severe disc degeneration with associated osteoarthritic changes with varying degrees of neural foramina stenosis worse at the L5-S1 but also demonstrating additional levels of neural foraminal stenosis. Patient will be admitted to the hospital and consults in place with orthopedic spine for evaluation and recommendations. REVIEW OF SYSTEMS Constitutional: No fever, no chills, no night sweats. No weight change. No weakness, fatigue or lethargy. No daytime sleepiness. EENT: No headache. No blurred vision or double vision, no loss of vision. No loss of Hearing, no ringing in the ears, no dizziness. No nasal drainage or congestion. No epistaxis. No sore throat. Lungs: No shortness of breath, cough, no sputum production. No wheezing. Cardiovascular: No chest pain, no lower extremity edema. No palpitations. No paroxysmal nocturnal dyspnea. No orthopnea. No lightheadedness or dizziness. No syncopal episodes. Abdominal: No abdominal pain. No nausea, vomiting. No diarrhea. No constipation. No bloody or tarry stools. No loss of appetite. Genitourinary: No dysuria, increased frequency, urgency. No urinary retention. Musculoskeletal: No myalgias. No muscle weakness, reported gait dysfunction, 1 recent falls. Reported severe back pain with radiation down right leg. No neck pain. Integumentary: No wounds, no lesions. No rash or pruritus. No unusual bruising. No change in hair or nails. Neurologic: No aphasia. No facial droop. No change in mentation. No head injury. No headache. No paralysis. No paresthesia. Psychiatric: No depression. No anxiety. No mood swings. Endocrine: No abnormal blood sugars. No weight change. No excessive sweating or thirst. No cold intolerance. MEDICAL HISTORY Hyperlipidemia Benign prostatic hypertrophy Diabetes mellitus type 2 SURGICAL HISTORY Cataract removal and intraocular lens implants Colonoscopy SOCIAL HISTORY Patient is a nonsmoker. He drinks socially. No marijuana use. No illicit drug use. Patient lives in his own house alone. He utilizes a cane for ambulation. FAMILY HISTORY Father at age 85 from myocardial infarction. Mother at age 89 from cardiomyopathy with history of Alzheimer's dementia, congestive heart failure and diabetes mellitus type 2. PHYSICAL EXAMINATION Gen: This is an 88-year-old male in bed and appears to be uncomfortable due to pain. HEENT: Head is atraumatic, normocephalic. Pupils equal, round. Sclerae is anicteric. NECK: Supple. No JVD. No lymphadenopathy. No thyromegaly. LUNGS: Clear to auscultation. No wheezes or rhonchi. No intercostal retractions. HEART: Regular rate and rhythm. No murmur. ABDOMEN: Soft. Bowel sounds are present. No masses. No tenderness. EXTREMITIES: No pedal edema. No calf tenderness. NEUROLOGICAL: Patient is awake, alert and oriented x3. Cranial nerves 2 through 12 are grossly intact. ASSESSMENT AND PLAN 1. Severe lumbar pain secondary to neuroforaminal stenosis, degenerative disc disease of the lumbar spine. Consult with orthopedic spine, PT and OT. At this point, patient is unable to care for himself due to the pain. Social work consult for discharge planning. 2. Hyperlipidemia. Continue atorvastatin 40 mg daily. 3. Diabetes mellitus type 2. Continue patient on Tradjenta 5 mg daily. Hemoglobin A1c is 6.3. 4. Benign prostatic hypertrophy. Continue Flomax 0.4 mg daily. 5. Carotid stenosis. Continue Plavix 75 mg daily and Lipitor 40 mg daily. 6. DVT prophylaxis. SCDs and LEDA hose. 7. GI prophylaxis. Protonix. Patient will be admitted to the hospital for a minimum of 2 night stay. DISCHARGE PLAN Most likely patient will require subacute rehab. PT OT and social work consults. Impression and plan of care have been directed as dictated by the signing physician. Lorena Esteban nurse practitioner acting as scribe for signing physician. Past Medical History Past Medical History: Diabetes Mellitus, Eye Disorder, Osteoarthritis (OA) Additional Past Medical History / Comment(s): PATIENT UNSURE OF WHY HE TAKES PLAVIX, CALLED DR FORBES'S OFFICE, AND WAS TOLD "HIS CARDIAC DR PRESCRIBES IT"; PATIENT DENIES ANY HEART PROBLEMS, STROKE, OR BLOOD CLOT HX. History of Any Multi-Drug Resistant Organisms: None Reported Additional Past Surgical History / Comment(s): COLONOSCOPY, cataract surgery. Past Anesthesia/Blood Transfusion Reactions: No Reported Reaction Past Psychological History: No Psychological Hx Reported Smoking Status: Never smoker Past Alcohol Use History: Rare Past Drug Use History: None Reported - Past Family History Father Family Medical History: Cancer Mother Family Medical History: Cancer Medications and Allergies Home Medications Medication Instructions Recorded Confirmed Type Clopidogrel [Plavix] 75 mg PO DAILY 05/07/15 02/26/23 History Folic Acid 1 mg PO DAILY 05/07/15 02/26/23 History Tamsulosin [Flomax] 0.4 mg PO DAILY 05/07/15 02/26/23 History Atorvastatin [Lipitor] 40 mg PO DAILY 02/26/23 02/26/23 History Bimatoprost [[place] 0.01% Ophth 1 drop BOTH EYES HS 02/26/23 02/26/23 History Soln] Finasteride [Proscar] 5 mg PO DAILY 02/26/23 02/26/23 History HYDROcodone/APAP 5-325MG [[place] 1 tab PO Q4HR PRN 3 Days #18 tab 02/26/23 Rx 5-325] Olopatadine HCl [Patanol 0.1%] 1 drop BOTH EYES DAILY 02/26/23 02/26/23 History glipiZIDE [glipiZIDE ER] 2.5 mg PO DAILY 02/26/23 02/26/23 History sitaGLIPtin [Januvia] 100 mg PO DAILY 02/26/23 02/26/23 History Losartan [Cozaar] 25 mg PO DAILY #30 tab 02/28/23 Rx Meclizine [Antivert] 12.5 mg PO BID tab 02/28/23 Rx Allergies Allergy/AdvReac Type Severity Reaction Status Date / Time No Known Allergies Allergy Verified 02/26/23 07:07 Physical Exam Vitals: Vital Signs Temp Pulse Resp BP BP Pulse Ox 02/28/23 07:00 97.8 F 66 173/71 97 02/28/23 02:00 98.7 F 80 16 131/80 96 02/27/23 20:00 98.4 F 61 16 117/71 96 02/27/23 15:00 98.1 F 73 17 118/72 95 Intake and Output 02/27/23 02/28/23 02/28/23 22:59 06:59 14:59 Output Total 450 Balance -450 Output: Urine 450 Results CBC & Chem 7: 02/26/23 03:55 02/26/23 04:48 Labs: Abnormal Lab Results - Last 24 Hours (Table) 02/27/23 02/27/23 Range/Units 11:36 19:52 POC Glucose (mg/dL) 142 H 115 H (70-110) mg/dL Thrombosis Risk Factor Assmnt - Choose All That Apply Any of the Below Risk Factors Present?: No Other Risk Factors: Yes Each Risk Factor Represents 2 Points: Patient confined to bed Thrombosis Risk Factor Assessment Total Risk Factor Score: 2 Thrombosis Risk Factor Assessment Level: Low Risk
--- NOTE | 2023-02-28 09:09 | P.PN ---
Subjective Progress Note Date: 02/27/23 HISTORY OF PRESENT ILLNESS This is an 88 year old male with past medical history of hyperlipidemia, benign prostatic hypertrophy, diabetes mellitus type 2. patient presented to the emergency center due to lumbar pain, unable to get himself out of the chair and difficulty with ambulation on the right lower extremity due to severe pain. The pain radiates down the right lower extremity to that posterior lateral calf. He has not been able to ambulate due to the pain. He has had pain over the past several months but this is significantly worse. Patient underwent an ultrasound Doppler of the right lower extremity that was negative for DVT. CAT scan of the lumbar spine was done which revealedno evidence for spinal fracture. Moderate to severe degenerative changes with varying degrees of neural foraminal stenosis. Foraminal stenosis worse at L2-L3 and L5-S1 on the left with severe neural foraminal stenosis. Right knee x-ray revealed no acute osseous abnormality. Patient had a previous MRI done of his lumbar spine in November 2022 which revealedno definitive evidence of significant spinal canal stenosis. Left foraminal L2-L3 disc bulge with superimposed protrusion she adjusted. No signi ficant spinal canal or neural foraminal stenosis. Moderate to severe disc degeneration with associated osteoarthritic changes with varying degrees of neural foramina stenosis worse at the L5-S1 but also demonstrating additional levels of neural foraminal stenosis. Patient will be admitted to the hospital and consults in place with orthopedic spine for evaluation and recommendations. 02/27: Patient has been seen by orthopedic spine with plan for pain evaluation. No plan for any surgical intervention and patient may follow-up in the office following discharge. Patient is also been seen by pain management with recommendations for BENIGNO although patient will need to be off Plavix for 1 week prior to injection. Patient is complaining of dizziness and meclizine added. Patient states that he had difficulty walking with a walker due to balance. PT and OT are following with hopefully plan for subacute rehab tomorrow. REVIEW OF SYSTEMS Constitutional: No fever, no chills, no night sweats. No weight change. No weakness, fatigue or lethargy. No daytime sleepiness. EENT: No headache. No blurred vision or double vision, no loss of vision. No loss of Hearing, no ringing in the ears, no dizziness. No nasal drainage or congestion. No epistaxis. No sore throat. Lungs: No shortness of breath, cough, no sputum production. No wheezing. Cardiovascular: No chest pain, no lower extremity edema. No palpitations. No paroxysmal nocturnal dyspnea. No orthopnea. No lightheadedness or dizziness. No syncopal episodes. Abdominal: No abdominal pain. No nausea, vomiting. No diarrhea. No constipation. No bloody or tarry stools. No loss of appetite. Genitourinary: No dysuria, increased frequency, urgency. No urinary retention. Musculoskeletal: No myalgias. No muscle weakness, reported gait dysfunction, 1 recent falls. Reported severe back pain with radiation down right leg. No neck pain. Integumentary: No wounds, no lesions. No rash or pruritus. No unusual bruising. No change in hair or nails. Neurologic: No aphasia. No facial droop. No change in mentation. No head injury. No headache. No paralysis. No paresthesia. Psychiatric: No depression. No anxiety. No mood swings. Endocrine: No abnormal blood sugars. No weight change. No excessive sweating or thirst. No cold intolerance. PHYSICAL EXAMINATION Gen: This is an 88-year-old male in bed and appears to be uncomfortable due to pain. HEENT: Head is atraumatic, normocephalic. Pupils equal, round. Sclerae is anicteric. NECK: Supple. No JVD. No lymphadenopathy. No thyromegaly. LUNGS: Clear to auscultation. No wheezes or rhonchi. No intercostal retractions. HEART: Regular rate and rhythm. No murmur. ABDOMEN: Soft. Bowel sounds are present. No masses. No tenderness. EXTREMITIES: No pedal edema. No calf tenderness. NEUROLOGICAL: Patient is awake, alert and oriented x3. Cranial nerves 2 through 12 are grossly intact. ASSESSMENT AND PLAN 1. Severe lumbar pain secondary to neuroforaminal stenosis, degenerative disc disease of the lumbar spine. Consult with orthopedic spine, PT and OT are aniceto reciated. Consult with pain management appreciated. At this point, patient is unable to care for himself due to the pain. Social work consult for discharge planning. 2. Hyperlipidemia. Continue atorvastatin 40 mg daily. 3. Diabetes mellitus type 2. Continue patient on Tradjenta 5 mg daily. Hemoglobin A1c is 6.3. 4. Benign prostatic hypertrophy. Continue Flomax 0.4 mg daily. 5. Carotid stenosis. Continue Plavix 75 mg daily and Lipitor 40 mg daily. 6. DVT prophylaxis. SCDs and LEDA hose. 7. GI prophylaxis. Protonix. DISCHARGE PLAN Subacute rehab at [facility] tomorrow if arrangements can be completed. PT OT and social work consults. Impression and plan of care have been directed as dictated by the signing physician. Lorena Esteban nurse practitioner acting as scribe for signing physician. Objective - Vital Signs Vital signs: Vital Signs Temp 97.6 F 02/27/23 07:00 Pulse 69 02/27/23 07:00 Resp 18 02/27/23 07:00 BP 137/76 02/27/23 07:00 Pulse Ox 96 02/27/23 07:00 FiO2 Intake & Output 02/26/23 02/27/23 02/27/23 18:59 06:59 18:59 Intake Total 120 Output Total 250 Balance -250 120 Weight 68.039 kg Intake: Oral 120 Output: Urine 250 Other: Voiding Method Urinal # Voids 1 # Bowel Movements 1 - Labs CBC & Chem 7: 02/26/23 03:55 02/26/23 04:48 Labs: Abnormal Lab Results - Last 24 Hours (Table) 02/27/23 02/27/23 Range/Units 05:52 11:36 POC Glucose (mg/dL) 118 H 142 H (70-110) mg/dL
[2023-02-28] MEDS ORDERED: PANTOPRAZOLE 40 MG TABLET PO SCH (09:15)
--- NOTE | 2023-02-28 09:18 | P.DS ---
Providers Date of admission: 02/26/23 09:42 Expected date of discharge: 02/28/23 Attending physician: Jairon Coronado Consults: 02/26/23 09:42 Consult Physician Urgent Consulting Provider: Jesus Gomez Consult Reason/Comments: Inability to family, spinal stenosis Do you want consulting provider notified?: Yes Primary care physician: Jairon Coronado Hospital Course: HISTORY OF PRESENT ILLNESS This is an 88 year old male with past medical history of hyperlipidemia, benign prostatic hypertrophy, diabetes mellitus type 2. patient presented to the emergency center due to lumbar pain, unable to get himself out of the chair and difficulty with ambulation on the right lower extremity due to severe pain. The pain radiates down the right lower extremity to that posterior lateral calf. He has not been able to ambulate due to the pain. He has had pain over the past several months but this is significantly worse. Patient underwent an ultrasound Doppler of the right lower extremity that was negative for DVT. CAT scan of the lumbar spine was done which revealedno evidence for spinal fracture. Moderate to severe degenerative changes with varying degrees of neural foraminal stenosis. Foraminal stenosis worse at L2-L3 and L5-S1 on the left with severe neural foraminal stenosis. Right knee x-ray revealed no acute osseous abnormality. Patient had a previous MRI done of his lumbar spine in November 2022 which revealedno definitive evidence of significant spinal canal stenosis. Left foraminal L2-L3 disc bulge with superimposed protrusion she adjusted. No significant spinal canal or neural foraminal stenosis. Moderate to severe disc degeneration with associated osteoarthritic changes with varying degrees of neural foramina stenosis worse at the L5-S1 but also demonstrating additional levels of neural foraminal stenosis. Patient will be admitted to the hospital and consults in place with orthopedic spine for evaluation and recommendations. 02/27: Patient has been seen by orthopedic spine with plan for pain evaluation. No plan for any surgical intervention and patient may follow-up in the office following discharge. Patient is also been seen by pain management with recommendations for BENIGNO although patient will need to be off Plavix for 1 week prior to injection. Patient is complaining of dizziness and meclizine added. Patient states that he had difficulty walking with a walker due to balance. PT and OT are following with hopefully plan for subacute rehab tomorrow. 02/28: Patient has had no events overnight. patient's blood pressure has been running between 117/71 and 173/71 this morning. His heart rate is in the 60s80s. Capillary blood glucose running between 79 and 142.With blood glucose running between 79 and 142. Patient will be discharged tomorrow with today in stable condition. DISCHARGE DIAGNOSES 1. Severe lumbar pain secondary to neuroforaminal stenosis, degenerative disc disease of the lumbar spine. 2. Hyperlipidemia. 3. Diabetes mellitus type 2. 4. Benign prostatic hypertrophy. 5. Carotid stenosis. 6. Hypertension. DISCHARGE PLAN Subacute rehab at [facility] Greater than 35 minutes was utilized and coordinating patient's discharge. Impression and plan of care have been directed as dictated by the signing physician. Lorena Esteban nurse practitioner acting as scribe for signing physician. Plan - Discharge Summary Discharge Rx Participant: No New Discharge Prescriptions: New HYDROcodone/APAP 5-325MG [Moshannon 5-325] 1 tab PO Q4HR PRN 3 Days #18 tab PRN Reason: Pain Meclizine [Antivert] 12.5 mg PO BID tab Losartan [Cozaar] 25 mg PO DAILY #30 tab Continue Tamsulosin [Flomax] 0.4 mg PO DAILY Folic Acid 1 mg PO DAILY Clopidogrel [Plavix] 75 mg PO DAILY glipiZIDE [glipiZIDE ER] 2.5 mg PO DAILY Finasteride [Proscar] 5 mg PO DAILY sitaGLIPtin [Januvia] 100 mg PO DAILY Olopatadine HCl [Patanol 0.1%] 1 drop BOTH EYES DAILY Bimatoprost [Lumigan 0.01% Ophth Soln] 1 drop BOTH EYES HS Atorvastatin [Lipitor] 40 mg PO DAILY Discharge Medication List Clopidogrel [Plavix] 75 mg PO DAILY 05/07/15 [History] Folic Acid 1 mg PO DAILY 05/07/15 [History] Tamsulosin [Flomax] 0.4 mg PO DAILY 05/07/15 [History] Atorvastatin [Lipitor] 40 mg PO DAILY 02/26/23 [History] Bimatoprost [Lumigan 0.01% Ophth Soln] 1 drop BOTH EYES HS 02/26/23 [History] Finasteride [Proscar] 5 mg PO DAILY 02/26/23 [History] HYDROcodone/APAP 5-325MG [Moshannon 5-325] 1 tab PO Q4HR PRN 3 Days #18 tab 02/26/23 [Rx] Olopatadine HCl [Patanol 0.1%] 1 drop BOTH EYES DAILY 02/26/23 [History] glipiZIDE [glipiZIDE ER] 2.5 mg PO DAILY 02/26/23 [History] sitaGLIPtin [Januvia] 100 mg PO DAILY 02/26/23 [History] Losartan [Cozaar] 25 mg PO DAILY #30 tab 02/28/23 [Rx] Meclizine [Antivert] 12.5 mg PO BID tab 02/28/23 [Rx] Follow up Appointment(s)/Referral(s): Juan Joshua, FARHANA [PHYSICIAN [employer]IPYARD SUPERVISOR] - 4 Weeks (Patient may follow-up with Juan Joshua PA-C or Dr. David Gomez at [facility] in 4-6 weeks following discharge following treatment w ith pain management. ) Jairon Coronado MD [Primary Care Provider] - 1 Week (AT [facility]) Discharge Disposition: TRANSFER TO SNF/ECF
[2023-02-28] MEDS ORDERED: LOSARTAN 25 MG TAB PO SCH (09:30)
[2023-02-28 11:23] VITALS: BP 131/75
[2023-02-28 11:36] LABS: Glucose,Whole Blood 120 mg/dL (70-110)
[2023-02-28] MEDS: SODIUM CHLORIDE 0.9% 1,000 ML IV SCH (16:52)
== END 2023-02-28 17:53 ==
LOC: EC 18:18 → 1SOBS 02-26 09:42
PROVIDERS: ADMIT Internal Medicine; ATTEND Internal Medicine
DX: M51.16 Intervertebral disc disorders with radiculopathy, lumbar region (principal); M48.061 Spinal stenosis, lumbar region without neurogenic claudication; M47.817 Spondylosis without myelopathy or radiculopathy, lumbosacral region; R26.2 Difficulty in walking, not elsewhere classified; E78.5 Hyperlipidemia, unspecified; N40.0 Benign prostatic hyperplasia without lower urinary tract symptoms; E11.9 Type 2 diabetes mellitus without complications; I65.29 Occlusion and stenosis of unspecified carotid artery; I10 Essential (primary) hypertension; Z79.02 Long term (current) use of antithrombotics/antiplatelets; Z79.84 Long term (current) use of oral hypoglycemic drugs; Z79.899 Other long term (current) drug therapy
CPT/HCPCS: 96360; 96361 ×2; 99285; 36415 ×2; 97116; 97163; 97535; 97167; 85379; 80053; 83605; 83735; 85025; 86140; 73562; 93971; 72131; G0378 ×3; S0138 ×2

== ENCOUNTER → 2023-12-24 | Outpatient (CLI) | payer MEDICARE ==
[2023-12-24 13:43] LABS: African American GFR (CKD) >90 (>60 ml/min/1.73 sqM); Anion Gap 7 mmol/L; Blood Urea Nitrogen 15 mg/dL (9-20); Calcium 9.1 mg/dL (8.4-10.2); Carbon Dioxide 26 mmol/L (22-30); Chloride 105 mmol/L (98-107); Glucose 131 mg/dL (74-99); Non-African American GFR(CKD) 79 (>60 ml/min/1.73 sqM); Potassium 4.2 mmol/L (3.5-5.1); Sodium 138 mmol/L (137-145)
--- NOTE | 2023-12-25 19:45 | CT ---
EXAMINATION TYPE: CT ChestAbdPelvis w con DATE OF EXAM: 12/24/2023 3:23 PM COMPARISON: None. CLINICAL INDICATION: Male, 88 years old with history of weight loss, Elevated LFT's, weight loss and cough. Technique: CT ChestAbdPelvis w con; Multiple axial images were obtained. Two-dimensional coronal and sagittal reconstructions were obtained. Contrast used:100 ml mL of Isovue 300 with IV Contrast, (None if empty) Oral contrast used: with Oral Contrast CT DLP: 593.2 mGycm, Automated exposure control for dose reduction was used. Findings: CHEST: LUNGS/ PLEURA: No focal consolidation, pneumothorax or pleural effusion. AIRWAY: Patent and unremarkable. HEART: Size within normal limits. MEDIASTINUM: No gross evidence of adenopathy. VASCULATURE: No aortic aneurysm. MUSCULOSKELETAL: No acute osseous abnormalities. SOFT TISSUES/LYMPH NODES: Unremarkable. LOWER NECK: No significant findings. ABDOMEN: ABDOMEN LIVER: Unremarkable GALLBLADDER AND BILE DUCTS: Unremarkable. PANCREAS: Unremarkable. SPLEEN: Unremarkable. ADRENAL GLANDS: Unremarkable. KIDNEYS AND URETERS: No evidence of hydronephrosis or renal calculus. The ureters are unremarkable. PELVIS BLADDER: Unremarkable REPRODUCTIVE: Prostate is enlarged in size measuring 4.7 cm in transverse dimension. ABDOMEN & PELVIS STOMACH AND BOWEL: No evidence of bowel obstruction. Scattered colonic diverticula PERITONEUM/RETROPERITONEUM: No evidence of pneumoperitoneum or free fluid. VASCULATURE: Mild atherosclerotic calcifications are present throughout the abdominal aorta and its b ranches. No evidence of aortic aneurysm. MUSCULOSKELETAL: No acute osseous abnormalities. Moderate disc degeneration changes are present throu ghout the thoracolumbar spine. LYMPH NODES: No gross evidence for lymphadenopathy. SOFT TISSUE/ABDOMINAL WALL: Unremarkable IMPRESSION: 1. No evidence for lymphadenopathy or mass. 2. Hepatic steatosis. 3. Colonic diverticulosis. 4. Prostatomegaly correlate with serum PSA. [facility], Workstation: [id number], 12/25/2023 7:42 PM
== END | disposition home or self-care (01) ==
LOC: RADCTMAIN 12:42
PROVIDERS: ATTEND Internal Medicine
DX: K76.0 Fatty (change of) liver, not elsewhere classified (principal); K57.30 Diverticulosis of large intestine without perforation or abscess without bleeding; N40.0 Benign prostatic hyperplasia without lower urinary tract symptoms; I70.0 Atherosclerosis of aorta; R63.4 Abnormal weight loss; R05.3 Chronic cough
CPT/HCPCS: 80048; 71260; 74177; 36415; Q9967